=== PATIENT | female | born 1955 | race Caucasian/White ===

== ENCOUNTER 2020-07-23 10:17 | Inpatient (IN) | payer MEDICARE, OTHER ==
[~2020-07-23] VITALS: Ht 167.6 cm; Wt 71.4 kg
--- NOTE | ~2020-07-23 | EEG ---
[address] [address] EEG STUDY REPORT Name: LOLY COLLADO Room: [address] IN M.R.#: [id number] Admission: 07/23/20 Attend Phys: Peggy Geronimo Discharge: Date of : 53 Report #: [id number] THIS REPORT FOR: cc: Juanita Guardado Tara DO ~ Khosla, Parveen K. MD DATE OF SERVICE: 07/24/2020 This is a 64-year-old female patient who claims that she has a history of seizure. EEG is being evaluated for that. EEG was done by placing the electrode by standard 10-20 system of electrode placement. Both referential and sequential montages were used for recording. Background activity in this patient is about 10 Hz and 30 microvolt. This is symmetrical activity. Photic stimulation is unremarkable. The patient became drowsy that is associated with bilateral slowing. Throughout the record, no active epileptiform activity was noticed. IMPRESSION: This patient's electroencephalogram is within normal limit. Thank you very much for this referral. By: [id number] Silva MD /nt
[2020-07-23 10:18] VITALS: BP 127/58
[2020-07-23] MEDS ORDERED: GABAPENTIN100 MG PO (10:27)
[2020-07-23] MEDS ORDERED: OMEPRAZOLE 20 M20 M1 PO (10:27)
[2020-07-23 11:18] LABS: CREATININE 1.1 mg/dL (0.6-1.3); POTASSIUM 4.2 mmol/L (3.5-5.1)
[2020-07-23 11:21] LABS: APTT 21.4 Seconds (25.0-31.3); PROTIME 10.4 Seconds (9.20-11.50)
[2020-07-23 11:29] LABS: ALBUMIN 3.9 g/dL (3.4-5.0); TOTAL BILIRUBIN 0.5 mg/dL (<0.1-1.0); TOTAL PROTEIN 7.7 g/dL (6.4-8.2)
[2020-07-23 11:45] LABS: ABSOLUTE EOSINOPHILS 0.1 thou/uL (0.0-0.7); ABSOLUTE LYMPHOCYTES 0.8 thou/uL (0.8-5.3); ABSOLUTE MONOCYTES 0.3 thou/uL (0.0-1.2); ABSOLUTE NEUTROPHILS 4.8 thou/uL (1.6-8.1); BASOPHILS 0.7 %; EOSINOPHILS 2.3 %; HEMATOCRIT 37.5 % (37.0-47.0); HEMOGLOBIN 12.3 gm/dL (12.0-15.0); LYMPHOCYTES 12.5 %; MCH 29.2 pg (26.0-34.0); MCHC 32.8 g/dL (28.0-37.0); MCV 88.9 fL (80.0-100.0); MONOCYTES 5.4 %; MPV 7.1 fl. (7.2-11.1); NUCLEATED RBCS 0 /100WBC; PLATELET COUNT* 287 thou/uL (150-400); POLYS 79.1 %; RBC 4.22 mil/uL (4.20-5.00); RDW-CV 13.4 % (10.5-14.5); WBC 6.1 thou/uL (4.0-11.0)
[2020-07-23 13:59] LABS: CALCIUM 8.9 mg/dL (8.5-10.1); POTASSIUM 4.6 mmol/L (3.5-5.1)
[2020-07-23 14:02] LABS: MAGNESIUM 2.4 mg/dL (1.8-2.4); PHOSPHORUS* 3.7 mg/dL (2.5-4.9)
[2020-07-23 14:13] LABS: URINE BILIRUBIN NEGATIVE (Negative); URINE BLOOD 1+ (Negative); URINE CLARITY CLEAR; URINE COLOR YELLOW; URINE GLUCOSE-RANDOM NEGATIVE (Negative); URINE KETONES NEGATIVE (Negative); URINE LEUKOCYTES-REFLEX TRACE (Negative); URINE NITRITE-REFLEX NEGATIVE (Negative); URINE PROTEIN NEGATIVE (Negative); URINE UROBILINOGEN 0.2 E.U./dl (0.2-1.0)
[2020-07-23 14:34] LABS: MUCUS 0-3 Light strn/LPF (None Seen); SQUAMOUS 0-3 Few /LPF (0-3); URINE RBC 3-10 Few /HPF (0-2)
[2020-07-23 14:35] LABS: BACTERIA-REFLEX 1-9 Few /HPF (None Seen); URINE WBC-REFLEX 0-5 Rare /HPF (0-5)
[2020-07-23 14:36] LABS: CASTS None Seen /LPF (None Seen); CRYSTALS None Seen /LPF (None Seen)
[2020-07-23 16:00] VITALS: BP 128/58
[2020-07-23 16:07] VITALS: BP 137/67
[2020-07-23 20:00] VITALS: BP 124/54
[2020-07-24 00:06] VITALS: BP 114/69
[2020-07-24 03:27] LABS: ALBUMIN 3.3 g/dL (3.4-5.0); ALKALINE PHOSPHATASE 110 U/L (46-116); ANION GAP 8 mmol/L (7-16); CALCIUM 8.5 mg/dL (8.5-10.1); CHLORIDE 108 mmol/L (98-107); CHOLESTEROL 224 mg/dL (<200); CO2 26 mmol/L (21-32); CREATININE 0.9 mg/dL (0.6-1.3); GLUCOSE 97 mg/dL (70-99); HDL CHOLESTEROL 69 mg/dL (>40); LDL CHOLESTEROL 143 mg/dL (<100); POTASSIUM 3.8 mmol/L (3.5-5.1); SGOT 12 U/L (15-37); SGPT < 6 U/L (30-65); SODIUM 142 mmol/L (136-145); TC:HDL 3.2 Ratio (Not establshd); TOTAL BILIRUBIN 0.8 mg/dL (<0.1-1.0); TOTAL PROTEIN 6.7 g/dL (6.4-8.2); TRIGLYCERIDE 62 mg/dL (<150); VLDL 12 mg/dL (<40)
[2020-07-24 03:53] VITALS: BP 117/60
[2020-07-24 03:53] LABS: HEMATOCRIT 35.8 % (37.0-47.0); HEMOGLOBIN 11.9 gm/dL (12.0-15.0); MCHC 33.1 g/dL (28.0-37.0); MCV 87.7 fL (80.0-100.0); MPV 7.5 fl. (7.2-11.1); RBC 4.09 mil/uL (4.20-5.00); RDW-CV 13.5 % (10.5-14.5); WBC 9.5 thou/uL (4.0-11.0)
[2020-07-24 03:55] LABS: BUN 16 mg/dL (7-18)
[2020-07-24 03:57] LABS: SERUM ASSESSMENT Clear
[2020-07-24 08:00] VITALS: BP 132/70
[2020-07-24 11:44] VITALS: BP 131/72
[2020-07-24 16:47] VITALS: BP 128/77
[2020-07-24 20:00] VITALS: BP 116/55
[2020-07-25] VITALS (8 sets, daily range): BP systolic 119–145; BP diastolic 56–77
[2020-07-25 03:05] LABS: GLYCOHEMOGLOBIN (HGB A1C) 5.6 % (4.8-5.6)
[2020-07-25] MEDS ORDERED: LAMICTAL100 MG PO (09:17)
[2020-07-26 00:05] VITALS: BP 136/56
[2020-07-26 05:13] VITALS: BP 128/56
[2020-07-26 05:27] LABS: HEMATOCRIT 35.3 % (37.0-47.0); HEMOGLOBIN 11.8 gm/dL (12.0-15.0); MCH 29.1 pg (26.0-34.0); MCHC 33.4 g/dL (28.0-37.0); MCV 87.3 fL (80.0-100.0); MPV 7.2 fl. (7.2-11.1); RBC 4.05 mil/uL (4.20-5.00); RDW-CV 13.2 % (10.5-14.5); WBC 6.6 thou/uL (4.0-11.0)
[2020-07-26 08:00] VITALS: BP 139/67
[2020-07-26] MEDS ORDERED: EFFEXOR XR37.5 MG PO (09:42)
[2020-07-26] MEDS ORDERED: CEFDINIR300 MG PO (09:42)
[2020-07-26] MEDS ORDERED: COLACE 100 MG100 MG PO (09:42)
[2020-07-26] MEDS ORDERED: MELATONIN5 M1 PO (09:42)
[2020-07-26] MEDS ORDERED: TRANSDERM-SCOP1 EACH TRANSDERM (09:42)
[2020-07-26] MEDS ORDERED: XANAX 0.25 MG0.25 MG PO ×2 (09:42→09:44)
[2020-07-26] MEDS ORDERED: CHILDREN'S ASPI81 M1 PO (09:42)
[2020-07-26] MEDS ORDERED: MECLIZINE HCL25 MG PO (09:42)
[2020-07-26] MEDS ORDERED: LIPITOR40 MG PO (10:02)
[2020-07-26 12:00] VITALS: BP 127/57
[2020-07-26 16:10] VITALS: BP 134/67
[2020-07-26 20:59] VITALS: BP 138/62
[2020-07-27 00:07] VITALS: BP 137/80
[2020-07-27 04:15] VITALS: BP 135/54
[2020-07-27 08:00] VITALS: BP 125/79
[2020-07-27 11:55] VITALS: BP 131/62
== END 2020-07-27 13:05 | DRG 689 ==
LOC: M.ERS 10:17 → M.TBA-ER 12:09 → M.2W 12:09
PROVIDERS: Emergency Medicine Emergency Medical Services; ADMIT Internal Medicine; ATTEND Internal Medicine
DX: N39.0 Urinary tract infection, site not specified (principal); G93.41 Metabolic encephalopathy; D68.59 Other primary thrombophilia; F44.5 Conversion disorder with seizures or convulsions; K21.9 Gastro-esophageal reflux disease without esophagitis; F41.9 Anxiety disorder, unspecified; F32.9 Major depressive disorder, single episode, unspecified; E78.5 Hyperlipidemia, unspecified; E86.0 Dehydration; I95.1 Orthostatic hypotension; I10 Essential (primary) hypertension; Z20.822 Contact with and (suspected) exposure to COVID-19; Z90.710 Acquired absence of both cervix and uterus; Z86.73 Personal history of transient ischemic attack (TIA), and cerebral infarction without residual deficits; Z79.899 Other long term (current) drug therapy; Z82.49 Family history of ischemic heart disease and other diseases of the circulatory system; Z87.891 Personal history of nicotine dependence